=== PATIENT | female | born 1950 | race Caucasian/White ===

== ENCOUNTER 2024-01-05 17:25 | Inpatient (IN) | payer MEDICARE, MEDICAID ==
[~2024-01-05] VITALS: Ht 154.9 cm; Wt 57.2 kg
[2024-01-05] MEDS: ACETAMINOPHEN 325MG TABLET PO ONE (18:00)
[2024-01-05 20:50] LABS: HEMATOCRIT. 41.5 % (36.0-48.0); HEMOGLOBIN. 13.8 g/dL (12.0-16.0); MEAN CORPUSCULAR HEMOGLOBIN 30.7 pg (28.0-32.0); MEAN CORPUSCULAR HGB CONC 33.3 g/dL (31.0-37.0); MEAN CORPUSCULAR VOLUME 92.2 fL (81.0-99.0); MEAN PLATELET VOLUME 8.1 fl (7.4-10.4); PLATELET 261 x1000/uL (130-400); RED CELL DISTRIBUTION WIDTH 13.4 % (11.6-14.6)
[2024-01-05 20:52] LABS: DIFFERENTIAL COMMENT 1
[2024-01-05 20:54] LABS: CHLORIDE 102 mEq/L (98-107); SODIUM 136 mEq/L (136-145)
[2024-01-05 20:55] LABS: CARBON DIOXIDE 24 mEq/L (21-32)
[2024-01-05 21:00] LABS: CREATININE 0.7 mg/dL (0.6-1.0); GLUCOSE 127 mg/dL (70-105); UREA NITROGEN BLOOD 12 mg/dL (9-23)
[2024-01-05 21:02] LABS: ALANINE AMINOTRANSFERASE 42 IU/L (10-49); ALBUMIN 4.3 g/dL (3.2-4.8); ASPARTATE AMINOTRANSFERASE 52 IU/L (<34); BILIRUBIN TOTAL 0.6 mg/dL (0.1-1.0); PROTEIN TOTAL 6.9 g/dL (6.0-8.3)
[2024-01-05 21:09] LABS: PLATELET ESTIMATE NORMAL
[2024-01-05] MEDS: HYDROCODONE/ACETAMINOPHEN 5/325MG TABLET PO ONE (22:00)
[2024-01-06 08:00] VITALS: BP 126/60; PULSE 83; RESP 19; TEMP 98
[2024-01-06] MEDS ORDERED: NALOXONE HCL 0.4MG/ML VIAL IV PRN (09:30)
[2024-01-06] MEDS: MORPHINE SULFATE 2 MG/ML CPJ (NOT FOR IM USE) IV PRN (09:38)
[2024-01-06 10:50] VITALS: BP 123/60; PULSE 86; RESP 20; TEMP 97.8
[2024-01-06 12:00] VITALS: BP 104/71; PULSE 87; RESP 19; TEMP 97.2
[2024-01-06] MEDS ORDERED: ONDANSETRON HCL 4MG/2ML INJ IV PRN (12:45)
[2024-01-06] MEDS ORDERED: IPRATROPIUM/ALBUTEROL 0.5-3(2.5)MG/3ML NEB HHN PRN (12:45)
[2024-01-06] MEDS: HYDROCODONE/ACETAMINOPHEN 5/325MG TABLET PO PRN (13:19)
[2024-01-06 14:45] LABS: *AMPHETAMINES SCREEN URINE NEGATIVE (NEGATIVE)
[2024-01-06 14:46] LABS: *BARBITURATES SCREEN URINE NEGATIVE (NEGATIVE); *COCAINE SCREEN URINE NEGATIVE (NEGATIVE); ECSTASY MDMA SCREEN URINE NEGATIVE (NEGATIVE); METHADONE URINE SCREEN NEGATIVE (NEGATIVE); OPIATES URINE SCREEN PRESUMPTIVE POSITIVE (NEGATIVE); PHENCYCLIDINE URINE SCREEN NEGATIVE (NEGATIVE)
[2024-01-06 15:51] LABS: CREATINE KINASE MB FRACTION 15.4 ng/mL (0.5-3.6)
[2024-01-06 15:52] LABS: TROPONIN I HIGH SENSITIVITY 7 ng/L (3.0-34)
[2024-01-06 16:00] VITALS: BP 116/71; PULSE 84; RESP 20; TEMP 97.6
[2024-01-06 16:04] LABS: CREATINE KINASE 2279 IU/L (34-145)
[2024-01-06] MEDS: SODIUM CHLORIDE 0.45% 1,000 ML IV SCH (18:30)
[2024-01-06 20:00] VITALS: BP 116/71; PULSE 108; RESP 20; TEMP 97.6
[2024-01-07 00:37] LABS: CREATINE KINASE MB FRACTION 7.5 ng/mL (0.5-3.6)
[2024-01-07 07:01] LABS: BASOPHILS % 0.2 % (0.0-2.0); EOSINOPHILS % 0.2 % (0.0-5.0); HEMATOCRIT. 40.3 % (36.0-48.0); HEMOGLOBIN. 13.6 g/dL (12.0-16.0); LYMPHOCYTES % 11.3 % (20.0-50.0); MEAN CORPUSCULAR HEMOGLOBIN 31.5 pg (28.0-32.0); MEAN CORPUSCULAR HGB CONC 33.7 g/dL (31.0-37.0); MEAN CORPUSCULAR VOLUME 93.3 fL (81.0-99.0); MEAN PLATELET VOLUME 8.5 fl (7.4-10.4); MONOCYTES % 7.8 % (2.0-8.0); NEUTROPHILS % 80.5 % (40.0-76.0); PLATELET 221 x1000/uL (130-400); RED BLOOD CELL COUNT 4.32 mill/uL (4.2-5.4); RED CELL DISTRIBUTION WIDTH 13.5 % (11.6-14.6); WHITE BLOOD COUNT 9.7 x1000/uL (4.5-11.0)
[2024-01-07 07:05] LABS: CHLORIDE 101 mEq/L (98-107); POTASSIUM 3.9 mEq/L (3.5-5.1); SODIUM 137 mEq/L (136-145)
[2024-01-07 07:06] LABS: CARBON DIOXIDE 26 mEq/L (21-32)
[2024-01-07 07:11] LABS: CREATININE 0.7 mg/dL (0.6-1.0); GLUCOSE 135 mg/dL (70-105); UREA NITROGEN BLOOD 12 mg/dL (9-23)
[2024-01-07 07:23] LABS: CREATINE KINASE 1368 IU/L (34-145)
[2024-01-07] MEDS: DOCUSATE SODIUM 100MG CAPSULE PO SCH (10:52)
[2024-01-07 20:00] VITALS: BP 118/70; PULSE 86; RESP 17; TEMP 97.4
[2024-01-08] VITALS: BP 108/60; PULSE 69; RESP 18; TEMP 97.6
[2024-01-08 04:00] VITALS: BP 114/73; PULSE 86; RESP 17; TEMP 98.1
[2024-01-08] MEDS: ACETAMINOPHEN 325MG TABLET PO PRN (07:37)
[2024-01-08 08:00] VITALS: BP 123/83; PULSE 103; RESP 19; TEMP 97
[2024-01-08 12:00] VITALS: BP 115/71; PULSE 98; RESP 20; TEMP 97.2
[2024-01-09] VITALS: BP 101/59; PULSE 82; RESP 18; TEMP 96.6
[2024-01-09 04:00] VITALS: BP 130/67; PULSE 87; RESP 17; TEMP 97.1
[2024-01-09 08:00] VITALS: BP 104/69; PULSE 77; RESP 20; TEMP 97.1
[2024-01-09 12:00] VITALS: BP 114/70; PULSE 83; RESP 20; TEMP 97
[2024-01-09 16:00] VITALS: BP 110/72; PULSE 80; RESP 18; TEMP 97.3
[2024-01-09 20:00] VITALS: BP 106/64; PULSE 80; RESP 18; TEMP 97.7
[2024-01-10] VITALS: BP 108/68; PULSE 130; RESP 18; TEMP 98.1
[2024-01-10 00:19] LABS: CREATINE KINASE 171 IU/L (34-145)
[2024-01-10 04:00] VITALS: BP 102/66; PULSE 82; RESP 18; TEMP 97.2
[2024-01-10 09:24] VITALS: BP 106/65; PULSE 79; RESP 20; TEMP 98.4
[2024-01-10 12:00] VITALS: BP 137/77; PULSE 91; RESP 20; TEMP 98.9
[2024-01-10 14:23] VITALS: BP 137/77; PULSE 91; TEMP 98.9; O2SAT 99
== END 2024-01-10 16:04 | disposition home health service (06) | DRG 184 ==
LOC: ER 17:25 → MICUSO 23:28 → EDBEDREQTM 23:30 → EDBEDREQ 23:30 → 6WST 01-06 10:33
PROVIDERS: ADMIT Internal Medicine; ATTEND Internal Medicine
DX: S22.42XA Multiple fractures of ribs, left side, initial encounter for closed fracture (principal); M62.82 Rhabdomyolysis; S42.141A Displaced fracture of glenoid cavity of scapula, right shoulder, initial encounter for closed fracture; M81.0 Age-related osteoporosis without current pathological fracture; M19.90 Unspecified osteoarthritis, unspecified site; M25.411 Effusion, right shoulder; Z88.0 Allergy status to penicillin; V89.2XXA Person injured in unspecified motor-vehicle accident, traffic, initial encounter; Y92.410 Unspecified street and highway as the place of occurrence of the external cause; Y93.89 Activity, other specified; Y99.8 Other external cause status
CPT/HCPCS: 36415; 71101; 71250; 73030; 73200; 73630; 80048; 80053; 80305; 82550; 82553; 84484; 85025; 97162; 97165; 97535; 99285; J2270